=== PATIENT | female | born 1990 | race Hispanic/Latino ===

== ENCOUNTER 2018-05-12 14:21 | Outpatient (CLI) | payer OTHER ==
[2018-05-12 15:29] LABS: Hematocrit 35.1 % (30.3-42.9); Hemoglobin 12.3 gm/dl (10.1-14.3); Mean Corpuscular HGB Conc 35 % (30-34); Mean Corpuscular Hemoglobin 30 pg (28-32); Mean Corpuscular Volume 85 fl (79-97); Platelet Count 206 K/mm3 (140-440); Red Blood Count 4.11 M/mm3 (3.65-5.03); Red Cell Distribution Width 14.2 % (13.2-15.2)
[2018-05-12 15:53] LABS: Alanine Aminotransferase 11 units/L (7-56); Uric Acid 4.2 mg/dL (3.5-7.6)
[2018-05-12 16:08] LABS: Bilirubin,Urine NEG (Negative); Blood,Urine NEG (Negative); Color,Urine Yellow (Yellow); Mucus,Urine 2+ /HPF; Protein,Urine <15 mg/dL mg/dL (Negative); Urobilinogen,Urine < 2.0 mg/dL (<2.0)
[2018-05-12 17:30] VITALS: BP 111/72
== END 2018-05-12 18:11 | disposition home or self-care (01) ==
LOC: TRG 14:21
PROVIDERS: ATTEND Obstetrics & Gynecology
DX: O47.1 False labor at or after 37 completed weeks of gestation (principal); Z3A.40 40 weeks gestation of pregnancy; Z91.013 Allergy to seafood; Z91.048 Other nonmedicinal substance allergy status
CPT/HCPCS: 36415; 59025; 81001; 82565; 83615; 84450; 84460; 84550; 85027

== ENCOUNTER 2018-05-19 05:31 | Inpatient (IN) | payer OTHER ==
[2018-05-19] MEDS ORDERED: LACTATED RINGERS 1,000 ML ONE (06:03)
[2018-05-19] MEDS ORDERED: POLYCILLIN/NS 2 GM/100 ML 2 GM/100 ML BAG IV ONE ×2 (06:03→07:00)
[2018-05-19 06:40] LABS: Hematocrit 37.7 % (30.3-42.9); Hemoglobin 12.7 gm/dl (10.1-14.3); Mean Corpuscular HGB Conc 34 % (30-34); Mean Corpuscular Hemoglobin 29 pg (28-32); Mean Corpuscular Volume 85 fl (79-97); Platelet Count 228 K/mm3 (140-440); Red Blood Count 4.41 M/mm3 (3.65-5.03); Red Cell Distribution Width 14.6 % (13.2-15.2)
[2018-05-19] MEDS ORDERED: LACTATED RINGERS 1,000 ML IV SCH ×2 (07:00→08:00)
--- NOTE | 2018-05-19 07:08 | History and Physical Report ---
History of Present Illness Date of examination: 05/19/18 Date of admission: 05/19/18 05:31 Chief complaint: SROM @ 41 weeks History of present illness: EDC Calculations by LMP: 05/12/2018 Past History : 3 Term Births: 2 Living Children: 2 Para: 2 Mult. Births: 0 Prev : 0 Prev. attempt? 0 Aborta: 0 Elect. Ab: 0 Spont. Ab: 0 Ectopics: 0 # 1 Delivery date: 2009 Weeks Gestation: 40+5 labor: no Delivery type: Anesthesia type: epidural Delivery location: [facility] Sex: Female weight: 6#12 Comments: del by Laureen # 2 Delivery date: 2016 Weeks Gestation: 40+5 labor: no Delivery type: Anesthesia type: none Delivery location: [facility] Infant Sex: Male weight: 7#11 Comments: del by Laureen (precip del) Past Medical History: SVT - no meds (sees Dr. 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 of genital herpes: no Partner hx. of genital herpes: no Rash, Viral, or Febrile illness since last LMP? no Varicella/Chicken Pox Status: Previous Disease Genetic History Congenital Heart Defect: Mom: no Dad: no Sofía Disease: Mom: no Dad: no Thalassemia Mom: no Dad: no Neural Tube Defect Mom: no Dad: no Down's Syndrome Mom: no Dad: no Jamel-Sachs Mom: no Dad: no Sickle Cell Disease/Trait Mom: no Dad: no Hemophilia Mom: no Dad: no Muscular Dystrophy Mom: no Dad: no Cystic Fibrosis Mom: no Dad: no Hamilton Chorea Mom: no Dad: no Mental Retardation Mom: no Dad: no Fragile X Mom: no Dad: no Other Genetic/Chromosomal Disorder Mom: no Dad: no Child w/other defect Mom: no Dad: no Enviromental Exposures Xray Exposure: no Medication, drug, or alcohol use since LMP: no Chemical/Other Exposure: no Exposure to Cat Liter: no Hx of Parvovirus (Fifth Disease): no Occupational Exposure to Children: other 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: 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 @ [employer] Active Medications (reviewed today): None Current Allergies (reviewed today): * IODINE (Critical) Laboratory Results Urine HCG: positive Past History Past Medical History: other (see HPI) Past Surgical History: other (see HPI) 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) Family/Genetic History: other (see HPI) - Obstetrical History Expected Date of Delivery: 05/12/18 Actual Gestation: 41 Week(s) 0 Day(s) : 3 Para: 2 Hx # Term Pregnancies: 2 Number of Pregnancies: 0 Spontaneous Abortions: 0 Induced : 0 Number of Living Children: 2 Medications and Allergies Allergies Allergy/AdvReac Type Severity Reaction Status Date / Time iodine Allergy Mild Itching Verified 05/18/16 22:59 shellfish derived Allergy Mild Itching Verified 05/18/16 23:00 Home Medications Medication Instructions Recorded Confirmed Last Taken Type Vit-Fe Fumar-FA [ 1 each PO QDAY #60 tablet 05/20/16 05/12/18 05/11/18 09:00 Rx Vitamin] 1 Active Meds: Active Medications Ampicillin Sodium (Polycillin/Ns 2 Gm/100 Ml) 2 gm in 100 mls @ 100 mls/hr IV ONCE ONE; Protocol Stop: 05/19/18 07:59 Last Admin: 05/19/18 06:22 Dose: 100 mls/hr Lactated Ringer's (Lactated Ringers) 1,000 mls @ 125 mls/hr IV DIRECT TANK Review of Systems All systems: negative - Vital Signs Vital signs: Vital Signs Resp 18 05/19/18 05:55 Temp Pulse Resp BP Pulse Ox 98.5 F 73 20 118/75 05/19/18 06:25 05/19/18 06:25 05/19/18 06:25 05/19/18 06:25 - Physical Exam Breasts: Positive: normal Cardiovascular: Regular rate Lungs: Positive: Clear to auscultation, Normal air movement Abdomen: Positive: normal appearance, soft Genitourinary (Female): Positive: normal external genitalia, normal perenium Vulva: both: normal Vagina: Positive: normal moisture Anus/Rectum: Positive: normal perianal skin Extremities: Positive: normal Deep Tendon Reflex Grade: Normal +2 - Obstetrical FHR: auscultation normal, category 1 Uterine Contraction Monitor Mode: External Cervical Dilatation: 3 Uterine Contraction Pattern: Irregular Uterine Tone Measurement Phase: Contraction Uterine Contraction Intensity: Mild Results Result Diagrams: 05/19/18 06:00 All other labs normal. Assessment and Plan 27 y/o @ 41 weeks admitted with SROM @ 0430. Admission orders in EMR. GBS +. Anticipate . - Patient Problems (1) SROM (spontaneous rupture of membranes) Current Visit: Yes Status: Acute (2) 41 weeks gestation of Current Visit: Yes Status: Acute (3) GBS (group B Streptococcus carrier), +RV culture, currently Current Visit: Yes Status: Acute
[2018-05-19] MEDS ORDERED: ZOFRAN IV PRN (07:09)
[2018-05-19] MEDS ORDERED: BRETHINE SUB-Q PRN (07:09)
[2018-05-19] MEDS ORDERED: MINERAL OIL PO PRN (07:09)
[2018-05-19] MEDS ORDERED: XYLOCAINE 2% INFILTRATI ONE (07:09)
[2018-05-19] MEDS ORDERED: SUBLIMAZE IV PRN (07:09)
[2018-05-19] MEDS ORDERED: PITOCin/NS 20 UNIT/1000ML DRIP 20 UNITS/1,000 ML BAG IV SCH ×2 (08:00→10:13)
--- NOTE | 2018-05-19 08:19 | Procedure Note ---
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 3 vessel cord clamped and cut. Cord blood collected. Placenta del intact and complete. Pit to IVF. 1st degree lac hemostatic and approximated - not repaired. EBL 200, wt 7#6.6oz, apgars 9/9. Mother and infant remain LDR stable. - Infant A at 1 minute: 9 at 5 minutes: 9 Gender: Male (7#6.6oz)
[2018-05-19] MEDS ORDERED: TYLENOL PO PRN (10:13)
[2018-05-19] MEDS ORDERED: MILK OF MAGNESIA PO PRN (10:13)
[2018-05-19] MEDS ORDERED: SODIUM CHLORIDE FLUSH SYRINGE 10 ML IV NR (10:13)
[2018-05-19] MEDS ORDERED: TUCKS PAD TP PRN (10:13)
[2018-05-19] MEDS ORDERED: DERMOPLAST TP PRN (10:13)
[2018-05-19] MEDS ORDERED: PHENERGAN PO PRN (10:13)
[2018-05-19] MEDS ORDERED: BENADRYL PO PRN (10:13)
[2018-05-19] MEDS ORDERED: LANSINOH TP PRN (10:13)
[2018-05-19] MEDS ORDERED: DULCOLAX PR PRN (10:13)
[2018-05-19] MEDS ORDERED: AMPICILLIN/NS 1 GM/50 ML 1 GM/50 ML BAG IV SCH (11:10)
[2018-05-19] MEDS: FEOSOL PO SCH (18:05)
[2018-05-19] MEDS: PRENATAL VITAMIN PO SCH (18:05)
[2018-05-19 21:06] LABS: Hematocrit 35.9 % (30.3-42.9); Hemoglobin 12.1 gm/dl (10.1-14.3)
[2018-05-20] MEDS ORDERED: BOOSTRIX IM ONE (08:12)
[2018-05-20] MEDS: MOTRIN PO SCH ×3 (08:59→23:05)
[2018-05-20] MEDS: COLACE PO SCH ×2 (10:50→21:10)
--- NOTE | 2018-05-20 10:52 | Discharge Summary ---
Providers - Providers Date of Admission: 05/19/18 05:31 Date of discharge: 05/20/18 (desires d/c home today) Attending physician: ADRIANA BRAY 05/19/18 10:13 Consult to Plumber Maintenance [CONS] Routine Reason For Exam: assistance with , SNS Primary care physician: ADRIANA BRAY Hospitalization Reason for admission: Labor Condition: Good Pertinent studies: post del H&H 12.1/35.9 Procedures: vaginal Hospital course: uncomplicated vaginal and course Disposition: DC-01 TO HOME OR SELFCARE - Discharge Diagnoses (1) (normal spontaneous vaginal delivery) Status: Acute Core Measure Documentation - Palliative Care Palliative Care/ Comfort Measures: Not Applicable - Core Measures Any of the following diagnoses?: none Exam - Constitutional Vitals: Temp Pulse Resp BP Pulse Ox 98.2 F 84 18 109/63 96 05/20/18 07:42 05/20/18 07:42 05/20/18 07:42 05/20/18 07:42 05/20/18 07:42 General appearance: Present: no acute distress, well-nourished - EENT Eyes: Present: PERRL ENT: hearing intact, clear oral mucosa - Neck Neck: Present: supple, normal ROM - Respiratory Respiratory effort: normal Respiratory: bilateral: CTA - Cardiovascular Heart Sounds: Present: S1 & S2. Absent: rub, click - Extremities Extremities: pulses symmetrical, No edema Peripheral Pulses: within normal limits - Abdominal General gastrointestinal: Present: soft, non-tender, non-distended, normal bowel sounds Female genitourinary: Present: normal - Integumentary Integumentary: Present: clear, warm, dry - Musculoskeletal Musculoskeletal: gait normal, strength equal bilaterally - Psychiatric Psychiatric: appropriate mood/affect, intact judgment & insight - Neurologic Neurologic: CNII-XII intact, moves all extremities - Additional findings Additional findings: Fundus firm, lochia scant, VSSAF, Plan Activity: no restrictions Diet: regular Follow up with: ADRIANA BRAY MD [Primary Care Provider] - 7 Days (Congratulations!! please call [phone] to schedule your son's circumcision in 1 week and your visit in 4 weeks. Bring EMLA cream to your son's appointment and await further teaching. Call for any questions or concerns. ) Prescriptions: Ibuprofen [Motrin 800 MG tab] 800 mg PO Q8HR PRN #30 tablet PRN Reason: Pain Lidocain2.5%/Prilocai2.5% [Emla] 5 gm TP ONCE PRN #1 tube PRN Reason: Pain
[2018-05-20] MEDS: FEOSOL PO SCH (21:10)
[2018-05-21] MEDS: MOTRIN PO SCH (07:01)
[2018-05-21] MEDS: FEOSOL PO SCH ×2 (11:11→11:13)
[2018-05-21] MEDS: PRENATAL VITAMIN PO SCH (11:12)
[2018-05-21 11:13] VITALS: BP 113/62
== END 2018-05-21 14:20 | disposition home or self-care (01) | DRG 775 ==
LOC: LD 05:31 → OB 10:12
PROVIDERS: ADMIT Obstetrics & Gynecology; ATTEND Obstetrics & Gynecology
PROC: 10E0XZZ Delivery of Products of Conception, External Approach (ICD-10-PCS; principal; 2018-05-19)
PROC: 3E0234Z Introduction of Serum, Toxoid and Vaccine into Muscle, Percutaneous Approach (ICD-10-PCS; 2018-05-20)
DX: O99.824 Streptococcus B carrier state complicating childbirth (principal); Z82.49 Family history of ischemic heart disease and other diseases of the circulatory system; O62.3 Precipitate labor; Z3A.41 41 weeks gestation of pregnancy; Z37.0 Single live birth; O70.0 First degree perineal laceration during delivery; Z91.041 Radiographic dye allergy status; Z23 Encounter for immunization
CPT/HCPCS: 36415; 85014; 85018; 85027; 86592; 86850; 86900; 86901; A6250; J0290; J2590; J3010; J7120